=== PATIENT | female | born 1945 | race African-American/Black ===

== ENCOUNTER 2020-02-15 21:51 | Emergency (ER) | payer OTHER ==
[~2020-02-15] VITALS: Ht 162.6 cm; Wt 78.0 kg
[2020-02-15 22:39] VITALS: BP 169/80
[2020-02-15] MEDS ORDERED: ACETAMINOPHEN WITH CODEINE 300/30MG TABLET PO ONE (22:45)
== END 2020-02-15 22:56 | disposition home or self-care (01) ==
LOC: ER 21:51
DX: K08.89 Other specified disorders of teeth and supporting structures (principal); I10 Essential (primary) hypertension; Z98.890 Other specified postprocedural states; Z90.710 Acquired absence of both cervix and uterus; Z88.6 Allergy status to analgesic agent; Z88.1 Allergy status to other antibiotic agents
CPT/HCPCS: 99283

== ENCOUNTER 2021-01-07 21:28 | Emergency (ER) | payer OTHER ==
[~2021-01-07] VITALS: Ht 165.1 cm; Wt 82.0 kg
[2021-01-07 22:06] VITALS: BP 181/74
[2021-01-07] MEDS ORDERED: ACETAMINOPHEN 325MG TABLET PO ONE (23:15)
[2021-01-07] MEDS ORDERED: AMOXICILLIN 500 MG CAPSULE PO ONE (23:15)
[2021-01-07] MEDS ORDERED: AMOX-494 MT (23:18)
[2021-01-07] MEDS ORDERED: TOPUD MT (23:18)
== END 2021-01-07 23:56 | disposition home or self-care (01) ==
LOC: ER 21:28
DX: R68.84 Jaw pain (principal); K08.89 Other specified disorders of teeth and supporting structures; I10 Essential (primary) hypertension; Z90.710 Acquired absence of both cervix and uterus; Z88.6 Allergy status to analgesic agent; Z88.1 Allergy status to other antibiotic agents
CPT/HCPCS: 99283

== ENCOUNTER 2024-06-29 18:40 | Emergency (ER) | payer OTHER ==
[~2024-06-29] VITALS: Ht 162.6 cm; Wt 73.0 kg
[~2024-06-29 18:40] MED LIST: AMOX-494 MT; TOPUD MT
[2024-06-29 18:43] VITALS: O2SAT 98
[2024-06-29] MEDS ORDERED: MECLIZINE 25MG TABLET PO ONE (20:00)
[2024-06-29 21:04] LABS: BASOPHILS % 0.8 % (0.0-2.0); EOSINOPHILS % 1.7 % (0.0-5.0); HEMATOCRIT. 38.7 % (36.0-48.0); HEMOGLOBIN. 12.5 g/dL (12.0-16.0); LYMPHOCYTES % 30.8 % (20.0-50.0); MEAN CORPUSCULAR HEMOGLOBIN 27.4 pg (28.0-32.0); MEAN CORPUSCULAR HGB CONC 32.4 g/dL (31.0-37.0); MEAN CORPUSCULAR VOLUME 84.4 fL (81.0-99.0); MEAN PLATELET VOLUME 9.2 fl (7.4-10.4); MONOCYTES % 7.2 % (2.0-8.0); NEUTROPHILS % 59.5 % (40.0-76.0); PLATELET 263 x1000/uL (130-400); RED BLOOD CELL COUNT 4.59 mill/uL (4.2-5.4); RED CELL DISTRIBUTION WIDTH 14.2 % (11.6-14.6); WHITE BLOOD COUNT 8.1 x1000/uL (4.5-11.0)
[2024-06-29 21:10] LABS: CHLORIDE 109 mEq/L (98-107); POTASSIUM 4.1 mEq/L (3.5-5.1); SODIUM 141 mEq/L (136-145)
[2024-06-29 21:11] LABS: CALCIUM 10.2 mg/dL (8.7-10.4); CARBON DIOXIDE 25 mEq/L (21-32)
[2024-06-29 21:16] LABS: CREATININE 1.1 mg/dL (0.6-1.0); GLUCOSE 116 mg/dL (70-105); UREA NITROGEN BLOOD 16 mg/dL (9-23)
[2024-06-29 21:17] LABS: TROPONIN I HIGH SENSITIVITY 14 ng/L (3.0-34)
[2024-06-29 21:20] LABS: PROTHROMBIN TIME 10.5 sec (9.6-11.0)
[2024-06-29] MEDS ORDERED: MECL-299 MT (22:08)
[2024-06-29 22:45] VITALS: BP 161/71; PULSE 64; RESP 17; TEMP 36.8; O2SAT 97
[2024-06-29] MEDS: MECLIZINE 25MG TABLET PO NR (22:45)
== END 2024-06-29 23:00 | disposition home or self-care (01) ==
LOC: ER 18:40
DX: R42 Dizziness and giddiness (principal); R07.89 Other chest pain; I10 Essential (primary) hypertension; F10.90 Alcohol use, unspecified, uncomplicated; I67.82 Cerebral ischemia; Z88.6 Allergy status to analgesic agent; Y90.9 Presence of alcohol in blood, level not specified
CPT/HCPCS: 99285; 70450; 71045; 80048; 83880; 85025; 85610; 84484; 36415; 93005; J8597; 99284